=== PATIENT | female | born 1990 ===

== ENCOUNTER 2023-03-06 15:36 | Outpatient (CLI) | payer BC, SELFPAY ==
--- NOTE | ~2023-03-06 | US_ITS ---
EXAMINATION: US pelvic complete DATE: 03/06/2023 16:07 INDICATION: Unspecified ovarian cyst. TECHNIQUE: Multiple transabdominal sonographic images of the pelvis were obtained. COMPARISON: None. FINDINGS: The uterus measures 9.0 x 4.3 x 5.7 cm. There is no free fluid in the pelvis. The endometrial complex measures 24 mm in thickness. The right ovary measures 3.3 x 1.5 x 3.3 cm. The left ovary measures 3. 0 x 1.6 x 2.1 cm. There is normal vascular flow in the ovaries. IMPRESSION: 1. Normal ovaries. 2. Thickened endometrial complex, which may be endometrial hyperplasia or a polyp. Reviewed, dictated and finalized at location A. IMPRESSION: 1. Normal ovaries. 2. Thickened endometrial complex, which may be endometrial hyperplasia or a maria g yp.
== END 2023-03-06 15:37 ==
DX: N83.209 Unspecified ovarian cyst, unspecified side (principal)
CPT/HCPCS: 76856